=== PATIENT | male | born 1955 | race Caucasian/White ===

== ENCOUNTER → 2018-01-07 | Outpatient (CLI) | payer OTHER ==
[~2018-01-07] MED LIST: ACE325 PO; ALP25 PO; ASP325 PO; DILT120C18 PO; ESCI5TAB10 PO; HCTZ25 PO; LISI2.5T60 PO; REGADENOSON 0.4 MG/5 ML SYR ONE; RIVA20TA PO; SIMV-42 PO
--- NOTE | 2018-01-07 23:23 | RT STRESS TEST REPORT ---
FACILITY: [facility] PATIENT NAME: LIZ STEVENS : [id number] MR: [id number] V: [id number] EXAM DATE: ORDERING PHYSICIAN: MARCUS CARRIZALES TECHNOLOGIST: Juanjo Acquisition Time: 2018-01-07 14:07:28 Total Exercise Time: 00:01:00 Test Indications: A Flutter Medications: See NM lIst Protocol: LEXISCAN Max HR: 082 BPM 51% of Pred: 160 BPM Max BP: 201/089 mmHG Max Work Load: 1.0 METS Confirmed by TORREY ARREDONDO ([id number]) on 01/07/2018 11:23:17 PM Referred By: Overread By: TORREY ARREDONDO
--- NOTE | 2018-01-08 10:46 | RADIOLOGY IMAGING REPORT ---
FACILITY: [facility] [place] PATIENT NAME: Sanjay Salmon : 1955 MR: [id number] V: [id number] EXAM DATE: ORDERING PHYSICIAN: MARCUS CARRIZALES TECHNOLOGIST: Location: [facility] [place] Patient: Sanjay Salmon : 1955 Visit/Account:[id number] Date of Sevice: 01/07/2018 EXAMINATION: Single isotope SPECT imaging with regadenoson infusion and gated SPECT imaging. DATE OF EXAMINATION: January 07, 2018. DATE OF INTERPRETATION: January 08, 2018. REQUESTING PHYSICIAN: MARCUS CARRIZALES. INDICATION: The patient is a 62-year-old male evaluated for ventricular tachycardia. PROCEDURE: After informed consent the patient received an intravenous injection of 12.2 mCi of Tc-99 m sestamibi followed at an appropriate time interval by rest imaging. The patient then subsequently received an intravenous infusion of 0.4 mg of regadenoson per protocol without complication. Resting heart rate was 51 bpm with a peak heart rate of 82 bpm. Blood pressure at rest was 153 / 91 and fol lowing infusion was 172 / 93. Baseline EKG demonstrates normal sinus rhythm with frequent PVCs. The re were no EKG changes of ischemia following infusion. Symptoms were nonspecific. The patient then received an intravenous injection of 30.0 mCi of Tc-99m sestamibi followed by stress imaging. RAW DATA: Examination of the summed raw data revealed a good quality study. MYOCARDIAL PERFUSION: The tomographic images demonstrate a mild decrease in myocardial perfusion tra cer uptake in the basal inferior wall seen on rest images with a mild decrease in tracer uptake in th e basal to mid inferior wall seen on stress imaging. In addition there is a subtle decrease in tracer uptake in the mid anterior wall on stress images not appreciated on rest imaging.. GATED IMAGES: The gated images demonstrate an ejection fraction 45% with global hypokinesis, visuall y appears normal. IMPRESSION: 1. Abnormal myocardial perfusion scan. There is a mild partially reversible defect in the basal to m id inferior wall as well as a subtle reversible defect in the mid anterior wall both of which could b e consistent with ischemia. However neither these defects are noted on prone imaging. The 3 times a d ay measurement is 1.5 for which can be consistent with multivessel disease. 2. Abnormal myocardial perfusion scan. 3. Abnormal LV systolic function; LVEF 45%. Visually ejection fraction appears normal, consider echo cardiogram 4. Based on the results of this exam, the patient appears to be at high risk for future cardiovascula r events. Report Dictated By: María Elena Villavicencio at 01/08/2018 10:38 AM Report E-Signed By: María Elena Villavicencio at 01/08/2018 10:42 AM WSN:[id number]
== END ==
LOC: RESP 04:40
PROVIDERS: ATTEND Internal Medicine
DX: I47.2 Ventricular tachycardia (principal)
CPT/HCPCS: 78452; 93017; A9500; J2785

== ENCOUNTER 2018-02-01 18:38 | Emergency (ER) | payer OTHER ==
[~2018-02-01 18:38] MED LIST changes: -REGADENOSON 0.4 MG/5 ML SYR ONE
--- NOTE | 2018-02-01 18:46 | ER Report ---
History and Physical Time Seen By MD: 18:46 Hx. of Stated Complaint: pt reports feeling heart move abnormally, fluttering, pt also reports dizziness , slight sob HPI/ROS CHIEF COMPLAINT: Palpitations HISTORY OF PRESENT ILLNESS: This is a 62-year-old male who presents to the emergency department for palpitations and shortness of breath. Patient states that he is status post a kayak ablation 2 weeks ago for atrial flutter. Patient states that the procedure went well was cleared to work out and started working out here recently. Patient states that yesterday he felt like his heart was fluttering lasted for maybe a couple of hours and resolved didn't think anything of it and woke up today states not feeling well. Throughout the day he has had some increased shortness of breath he also states that he has had some fluttering feelings in his heart all day, he states he went for a walk and his heart rate was up around 120 sustained for a period of time and his heart rate came down and he felt less short of breath. Patient also states he did feel lightheaded, especially when moving from sitting to standing. Patient denies chest pain, nausea, vomiting, diarrhea, aches, chills. REVIEW OF SYSTEMS: Constitutional: No fever, no chills. Eyes: No discharge. ENT: No sore throat. Cardiovascular: As above. Respiratory: As above. Gastrointestinal: No abdominal pain, no vomiting. Genitourinary: No hematuria. Musculoskeletal: No back pain. Skin: No rashes. Neurological: No headache. Allergies: Coded Allergies: No Known Drug Allergies (Verified , 08/04/12) Home Meds Active Scripts Rivaroxaban 20 Mg (XARELTO 20 MG) 20 Mg Tablet, 20 MG PO DAILY for stroke prevention with atrial , #30 TAB Prov:ROXY MONTALVO DO 10/27/17 Diltiazem Hcl (DILTIAZEM 24HR CD) 120 Mg Cap.er.24h, 120 MG PO DAILY for heart rate control, #30 Prov:ROXY MONTALVO DO 10/27/17 Reported Medications Ubidecarenone (COQ10) 50 Mg Tab.chew, 50 MG PO, TAB.CHEW 02/01/18 Atorvastatin Calcium (LIPITOR) 20 Mg Tablet, 1 TAB PO QDAY, TAB 02/01/18 Losartan Potassium (LOSARTAN POTASSIUM) 50 Mg Tablet, 75 MG PO QDAY 02/01/18 Acetaminophen (Tylenol) 325 Mg Tab, 650 MG PO Q4H Y, 0 Refills MAY HAVE 650 MG BY MOUTH EVERY 4 HOURS NEEDED. 05/31/10 Discontinued Reported Medications Simvastatin (Zocor) 20 Mg Tablet, 20 MG PO QHS, 0 Refills 05/31/10 Lisinopril (Lisinopril) 2.5 Mg Tablet, 2.5 MG PO DAILY, 0 Refills 05/31/10 Escitalopram Oxalate (Lexapro) 5 Mg Tablet, 5 MG PO QDAY, 0 Refills 05/31/10 Alprazolam (Xanax) 0.25 Mg Tab, 0.25 MG PO Q8H Y, 0 Refills 05/31/10 Aspirin (Aspirin) 325 Mg Tab, 81 MG PO DAILY, 0 Refills 05/31/10 Hydrochlorothiazide (Hydrochlorothiazide) 25 Mg Tab, 25 MG PO QDAY, 0 Refills 05/31/10 Past Medical/Surgical History Patient has a past medical and surgical history of hypertension, sleep apnea, cardiac ablation, atrial flutter, wears glasses, anxiety, left shoulder surgery. Reviewed Nurses Notes: Yes Hx Smoking: Yes (PAST) Hx Substance Use Disorder: Yes (JAZMIN) Hx Alcohol Use: Yes (MODERATE TO HIGH) Constitutional Vital Sign - Last 24 Hours 02/01/18 02/01/18 02/01/18 02/01/18 18:41 18:41 18:53 19:00 Temp 97.0 Pulse 74 74 Resp 18 11 B/P (MAP) 152/94 (113) 152/94 ???/??? (6790) Pulse Ox 94 93 O2 Delivery Room Air 02/01/18 02/01/18 02/01/18 02/01/18 19:08 19:13 19:28 19:30 Pulse 51 ??? 50 Resp 13 10 B/P (MAP) ???/??? (2698) Pulse Ox 94 92 02/01/18 02/01/18 02/01/18 02/01/18 19:43 19:46 19:58 20:00 Pulse 48 48 Resp 10 16 B/P (MAP) 126/88 (101) 117/88 (98) Pulse Ox 94 95 Physical Exam General Appearance: The patient is alert, has no immediate need for airway protection and no signs of toxicity. Eyes: Pupils equal and round no pallor or injection. ENT, Mouth: Mucous membranes are moist. Respiratory: There are no retractions, lungs are clear to auscultation. Cardiovascular: Regular rate and rhythm, no murmurs, clicks or rubs. Gastrointestinal: Abdomen is soft and non tender, no masses, bowel sounds normal. Neurological: Alert and oriented 4. Moving all tremor ease. No focal neural deficits. Following all commands. Skin: Warm and dry, no rashes. Musculoskeletal: Neck is supple non tender. Extremities are nontender, nonswollen and have full range of motion. [ ] DIFFERENTIAL DIAGNOSIS: After history and physical exam differential diagnosis was considered for chest pain including but not limited to myocardial ischemia, pericarditis pulmonary embolus, chest wall pain, pleural inflammation, status post ablation arrhythmias and pulmonary infectious causes. Medical Decision Making Data Points Result Diagram: 02/01/18 19002/01/18 190 Laboratory Hematology Test 02/01/18 19:00 Red Blood Count 5.85 M/uL (4.00-5.60) Mean Corpuscular Volume 82.1 fL (80.0-96.0) Mean Corpuscular Hemoglobin 28.6 pg (26.0-33.0) Mean Corpuscular Hemoglobin Concent 34.8 g/dL (32.0-36.0) Red Cell Distribution Width 13.5 % (11.5-14.5) Mean Platelet Volume 8.1 fL (7.2-11.1) Neutrophils (%) (Auto) 70.2 % (39.4-72.5) Lymphocytes (%) (Auto) 21.1 % (17.6-49.6) Monocytes (%) (Auto) 6.9 % (4.1-12.4) Eosinophils (%) (Auto) 1.2 % (0.4-6.7) Basophils (%) (Auto) 0.6 % (0.3-1.4) Nucleated RBC Relative Count (auto) 0.1 /100WBC Neutrophils # (Auto) 5.2 K/uL (2.0-7.4) Lymphocytes # (Auto) 1.6 K/uL (1.3-3.6) Monocytes # (Auto) 0.5 K/uL (0.3-1.0) Eosinophils # (Auto) 0.1 K/uL (0.0-0.5) Basophils # (Auto) 0.0 K/uL (0.0-0.1) Nucleated RBC Absolute Count (auto) 0.01 K/uL Sodium Level 136 mmol/L (137-145) Potassium Level 4.2 mmol/L (3.5-5.0) Chloride Level 104 mmol/L (98-107) Carbon Dioxide Level 20 mmol/L (22-30) Blood Urea Nitrogen 14 mg/dl (9-21) Creatinine 0.80 mg/dl (0.66-1.25) Glomerular Filtration Rate Calc > 60.0 Random Glucose 101 mg/dl (75-110) Calcium Level 9.0 mg/dl (8.4-10.2) Total Bilirubin 0.5 mg/dl (0.2-1.3) Aspartate Amino Transf (AST/SGOT) 22 U/L (0-35) Alanine Aminotransferase (ALT/SGPT) 38 U/L (0-56) Alkaline Phosphatase 97 U/L (0-126) Troponin I 0.019 ng/ml B-Type Natriuretic Peptide 46 pg/ml (0-100) Total Protein 7.3 gm/dl (6.3-8.2) Albumin 4.0 g/dl (3.5-5.0) Chemistry Test 02/01/18 19:00 White Blood Count 7.4 k/uL (4.5-11.0) Red Blood Count 5.85 M/uL (4.00-5.60) Hemoglobin 16.7 g/dL (14.0-18.0) Hematocrit 48.1 % (42.0-52.0) Mean Corpuscular Volume 82.1 fL (80.0-96.0) Mean Corpuscular Hemoglobin 28.6 pg (26.0-33.0) Mean Corpuscular Hemoglobin Concent 34.8 g/dL (32.0-36.0) Red Cell Distribution Width 13.5 % (11.5-14.5) Platelet Count 237 K/uL (150-450) Mean Platelet Volume 8.1 fL (7.2-11.1) Neutrophils (%) (Auto) 70.2 % (39.4-72.5) Lymphocytes (%) (Auto) 21.1 % (17.6-49.6) Monocytes (%) (Auto) 6.9 % (4.1-12.4) Eosinophils (%) (Auto) 1.2 % (0.4-6.7) Basophils (%) (Auto) 0.6 % (0.3-1.4) Nucleated RBC Relative Count (auto) 0.1 /100WBC Neutrophils # (Auto) 5.2 K/uL (2.0-7.4) Lymphocytes # (Auto) 1.6 K/uL (1.3-3.6) Monocytes # (Auto) 0.5 K/uL (0.3-1.0) Eosinophils # (Auto) 0.1 K/uL (0.0-0.5) Basophils # (Auto) 0.0 K/uL (0.0-0.1) Nucleated RBC Absolute Count (auto) 0.01 K/uL Glomerular Filtration Rate Calc > 60.0 Calcium Level 9.0 mg/dl (8.4-10.2) Total Bilirubin 0.5 mg/dl (0.2-1.3) Aspartate Amino Transf (AST/SGOT) 22 U/L (0-35) Alanine Aminotransferase (ALT/SGPT) 38 U/L (0-56) Alkaline Phosphatase 97 U/L (0-126) Troponin I 0.019 ng/ml B-Type Natriuretic Peptide 46 pg/ml (0-100) Total Protein 7.3 gm/dl (6.3-8.2) Albumin 4.0 g/dl (3.5-5.0) EKG/Imaging EKG Interpretation 12 lead EKG: Time of EKG 1839. Rhythm: Sinus rhythm, and regular rate 85 bpm. Flushing: normal QRS: normal ST segments: No ST depression or elevation identified. Multifocal PVCs, no couplets or runs. Previous EKGs showing SVT, atrial flutter with PVCs. Imaging Location: [facility] Patient: Sanjay Salmon : 1955 Visit/Account:[id number] Date of Sevice: 02/01/2018 2 VIEWS CHEST INDICATION: Dizziness. COMPARISON: 10/27/2017. FINDINGS: Cardiomediastinal silhouette and pulmonary vessels within normal limits. There is no focal infiltrate or lobar consolidation. There is no pneumothorax or pleural effusion. Stable granuloma in the right upper lobe. No new nodule. Upper abdomen is unremarkable. No acute bony abnormality. IMPRESSION: 1. No acute cardiopulmonary process. Report Dictated By: Gurmeet Graves at 02/01/2018 7:29 PM Report E-Signed By: Gurmeet Graves at 02/01/2018 7:30 PM WSN:[id number] ED Course/Re-evaluation Clinical Indication for ER IV: IV Access ED Course The patient was admitted to room. A history physical were obtained. Differential diagnoses were considered. An IV was started. A CBC, CMP, troponin and BNP were obtained. Lab studies unremarkable. Negative troponin, negative BNP. Two-view chest x-ray was negative for any cardiopulmonary process. I did review these results with the patient and his . I also consulted with Dr. Gibbs as noted below he felt we can go ahead and send the patient home since he has a follow-up appointment this coming Wednesday with his stockfeed miller, start him back on his Cardizem at 120 mg daily with the understanding that he can return at any time for worsening symptoms or shortness of breath or chest pain. Patient expressed understanding and was agreeable with this plan of care. 02/01/2018 8:00:09 pm I did speak with Dr. Gibbs of [facility] , one of the partners of Dr. Harp, who actually performed the ablation. He said send the patient home he can follow up as scheduled this coming Wednesday with his stockfeed miller go ahead and restart the Cardizem 120 mg daily. Decision to Disposition Date: Feb 01, 2018 Decision to Disposition Time: 20:01 Depart Departure Latest Vital Signs Vital Signs Date Time Temp Pulse Resp B/P (MAP) Pulse Ox O2 Delivery O2 Flow Rate FiO2 02/01/18 20:00 117/88 (98) 02/01/18 19:58 48 16 95 02/01/18 18:41 97.0 Room Air Impression: Primary Impression: Palpitations Condition: Improved Disposition: HOME OR SELF-CARE Referrals: SURENDRA HERNANDEZ DO (PCP) Patient Instructions: Palpitations (ED) Additional Instructions: Drink plenty of fluids. Get plenty of rest. Start the Cardizem 120 mg once a day until you have your follow-up appointment with cardiology this Wednesday. Continue with your regular medications as prescribed. Continue to monitor your pulse. Follow-up with your primary care provider as scheduled. May return to the ED for any other concerns or worsening symptoms. GUDELIA MENDEZ PHOTOGRAPHIC LABORATORY SUPERVISOR-BC Feb 01, 2018 18:46
[2018-02-01] MEDS ORDERED: LOSA50TA72 PO (18:48)
[2018-02-01] MEDS ORDERED: ATOR20TA22 PO (18:49)
[2018-02-01] MEDS ORDERED: UBID50TA3 PO (19:00)
[2018-02-01 19:13] LABS: PLATELET COUNT, AUTOMATED 237 K/uL (150-450)
--- NOTE | 2018-02-01 19:34 | EKG ---
FACILITY: [facility] - [place] PATIENT NAME: LIZ STEVENS : [id number] MR: [id number] V: [id number] EXAM DATE: ORDERING PHYSICIAN: GUDELIA MENDEZ TECHNOLOGIST: YOU Test Reason : IRREG HR Blood Pressure : / mmHG Vent. Rate : 085 BPM Atrial Rate : 049 BPM P-R Int : 162 ms QRS Dur : 088 ms QT Int : 384 ms P-R-T Axes : 049 -07 030 degrees QTc Int : 456 ms Marked sinus bradycardia with frequent premature ventricular complexes Abnormal ECG When compared with ECG of 27-OCT-2017 18:51, Sinus rhythm has replaced Atrial flutter Questionable change in QRS axis Confirmed by CHAY MOREL ([id number]) on 02/01/2018 10:18:24 PM Referred By: KATIA Confirmed By:CHAY MOREL
--- NOTE | 2018-02-01 19:34 | RADIOLOGY IMAGING REPORT ---
FACILITY: [facility] [place] PATIENT NAME: Sanjay Salmon : 1955 MR: [id number] V: [id number] EXAM DATE: ORDERING PHYSICIAN: GUDELIA MENDEZ TECHNOLOGIST: Location: [facility] Patient: Sanjay Salmon : 1955 Visit/Account:[id number] Date of Sevice: 02/01/2018 2 VIEWS CHEST INDICATION: Dizziness. COMPARISON: 10/27/2017. FINDINGS: Cardiomediastinal silhouette and pulmonary vessels within normal limits. There is no focal infiltrate or lobar consolidation. There is no pneumothorax or pleural effusion. Stable granuloma in the right upper lobe. No new nodule. Upper abdomen is unremarkable. No acute bony abnormality. IMPRESSION: 1. No acute cardiopulmonary process. Report Dictated By: Gurmeet Graves at 02/01/2018 7:29 PM Report E-Signed By: Gurmeet Graves at 02/01/2018 7:30 PM WSN:[id number]
[2018-02-01 20:00] VITALS: BP 117/88
== END 2018-02-01 20:20 | disposition home or self-care (01) ==
LOC: ER 18:48
DX: R00.2 Palpitations (principal); R94.31 Abnormal electrocardiogram [ECG] [EKG]; R00.1 Bradycardia, unspecified; I49.3 Ventricular premature depolarization
CPT/HCPCS: 71046; 82040; 82247; 82310; 82374; 82435; 82565; 82947; 83880; 84075; 84132; 84155; 84295; 84450; 84460; 84484; 84520; 85025; 93005; 99284

== ENCOUNTER → 2018-03-04 | Outpatient (CLI) | payer OTHER ==
[~2018-03-04] MED LIST changes: +ATOR20TA22 PO; +LOSA50TA72 PO; +UBID50TA3 PO
== END ==
LOC: LAB 07:42
PROVIDERS: ATTEND Physician Assistant Medical
DX: R19.7 Diarrhea, unspecified (principal)
CPT/HCPCS: 87045

== ENCOUNTER → 2018-04-14 | Day surgery (SDC) | payer OTHER ==
[~2018-04-14] VITALS: Ht 193 cm; Wt 112.0 kg
[~2018-04-14] MED LIST changes: +LIDOCAINE MPF 1% 5 ML VIAL ONE; +LIDOCAINE/SOD BICARB 8.4% SYR ID ONE; +NORMOSOL R SOLN(*) 1000 ML BAG 1,000 ML IV PRN; +PROPOFOL EMUL(*) 10MG/ML 20 ML 60 ML ONE
--- NOTE | 2018-04-14 07:28 | Post Operative Progress Note ---
Post Operative Progress Note Date: April 14, 2018 Time: 10:31 Surgeon: enzo Anesthesia: dr rodríguez Pre-Op Diagnosis: screening colonoscopy Post-Op Diagnosis: 2 mm polyp at 10 and 15 cm Procedure(s): colonoscopy and polypectomy CAROL TAFOYA MD April 14, 2018 07:28
--- NOTE | 2018-04-14 07:29 | Short(Outpt) Discharge Summary ---
Discharge Summary Reason for Hosp/Final Diag: (1) Encounter for screening colonoscopy Hospital Course & Plan: 2 mm polyp at 10 and 15 cm Departure Discharge to: Home Discharge Instructions Home Meds Active Scripts Rivaroxaban 20 Mg (XARELTO 20 MG) 20 Mg Tablet, 20 MG PO DAILY for stroke prevention with atrial , #30 TAB Prov:ROXY MONTALVO DO 10/27/17 Diltiazem Hcl (DILTIAZEM 24HR CD) 120 Mg Cap.er.24h, 120 MG PO DAILY for heart rate control, #30 Prov:ROXY MONTALVO DO 10/27/17 Reported Medications Ubidecarenone (COQ10) 50 Mg Tab.chew, 50 MG PO, TAB.CHEW 02/01/18 Atorvastatin Calcium (LIPITOR) 20 Mg Tablet, 1 TAB PO QDAY, TAB 02/01/18 Losartan Potassium (LOSARTAN POTASSIUM) 50 Mg Tablet, 75 MG PO QDAY 02/01/18 Acetaminophen (Tylenol) 325 Mg Tab, 650 MG PO Q4H Y, 0 Refills MAY HAVE 650 MG BY MOUTH EVERY 4 HOURS NEEDED. 05/31/10 Diet: Regular Activity: As Tolerated Special Instructions: resume xarelto tomorrow CAROL TAFOYA MD April 14, 2018 07:29
[2018-04-14 09:22] VITALS: BP 148/85
[2018-04-14 10:32] VITALS: BP 113/73
[2018-04-14 10:50] VITALS: BP 117/68
[2018-04-14 11:15] VITALS: BP_SYST 134; BP_DIAS 84; BP_DIAS 99
--- NOTE | 2018-04-14 15:57 | OPERATIVE REPORT 1 ---
EVENT DATE: April 14, 2018 SURGEON: Raciel Belle MD ANESTHESIOLOGIST: Efrain Napoles MD ANESTHESIA: Sedation. PREOPERATIVE DIAGNOSIS Screening colonoscopy. POSTOPERATIVE DIAGNOSIS A 2 mm polyp at 15 cm and at 10 cm. PROCEDURE PERFORMED Colonoscopy with polypectomy. DESCRIPTION OF PROCEDURE Patient was placed in the left lateral decubitus position and given intravenous sedation. Flexible colonoscope was inserted and advanced to the cecum. He had a good bowel prep. He had a little bit of solid stool that gave us some difficulty, but we got quite good visualization with some effort. The ileocecal valve and base of the cecum were identified. Scope was slowly withdrawn. Care was taken to look behind the haustral folds. No abnormalities were noted in the cecum, right colon, transverse, or descending colon. Sigmoid colon was normal. At 15 cm, he had a small, 2 mm mucosal polyp, and this was removed with the cold cup. At 10 cm, he had another that was removed with the cold cup. The scope was retroflexed. That appeared to be normal. Patient tolerated the procedure well. No apparent complication. AL[facility] HYDE MEDICAL CENTERJuan Miguel
== END ==
LOC: OR 00:54
PROVIDERS: ATTEND Surgery
DX: Z12.11 Encounter for screening for malignant neoplasm of colon (principal); K63.5 Polyp of colon
CPT/HCPCS: 00811; 45380; 88305; J2001; J2704

== ENCOUNTER → 2018-05-02 | Outpatient (CLI) | payer OTHER ==
[~2018-05-02] MED LIST changes: -LIDOCAINE MPF 1% 5 ML VIAL ONE; -LIDOCAINE/SOD BICARB 8.4% SYR ID ONE; -NORMOSOL R SOLN(*) 1000 ML BAG 1,000 ML IV PRN; -PROPOFOL EMUL(*) 10MG/ML 20 ML 60 ML ONE
== END ==
LOC: LAB 07:46
PROVIDERS: ATTEND Family Medicine
DX: R19.7 Diarrhea, unspecified (principal)
CPT/HCPCS: 83630; 87324; 87449

== ENCOUNTER 2018-07-27 00:55 | Day surgery (SDC) | payer OTHER ==
[~2018-07-27] VITALS: Ht 188 cm; Wt 112.0 kg
[~2018-07-27 00:55] MED LIST changes: -LOSA50TA72 PO; +LOSA50TA74 PO; +RIVA10TA PO
[2018-07-27] MEDS ORDERED: LIDOCAINE/SOD BICARB 8.4% SYR ID ONE (10:10)
[2018-07-27] MEDS ORDERED: NORMOSOL R SOLN(*) 1000 ML BAG 1,000 ML IV PRN (10:10)
[2018-07-27 10:22] VITALS: BP 147/85
[2018-07-27] MEDS ORDERED: PROPOFOL EMUL(*) 10MG/ML 20 ML 40 ML ONE (12:08)
[2018-07-27 12:10] VITALS: BP 120/74
--- NOTE | 2018-07-27 12:18 | Short(Outpt) Discharge Summary ---
Discharge Summary Reason for Hosp/Final Diag: (1) Diarrhea Status: Chronic Hospital Course & Plan: Flexible sigmoidoscopy with biopsies and rectal polyp removal completed without problems. Departure Discharge to: Home, Self Care Discharge Instructions Home Meds Reported Medications Rivaroxaban 10 MG (Xarelto 10 MG) 10 Mg Tablet, 10 MG PO DAILY 07/21/18 Ubidecarenone (COQ10) 50 Mg Tab.chew, 50 MG PO, TAB.CHEW 02/01/18 Atorvastatin Calcium (LIPITOR) 20 Mg Tablet, 1 TAB PO QDAY, TAB 02/01/18 Losartan Potassium (LOSARTAN POTASSIUM) 50 Mg Tablet, 75 MG PO QDAY 02/01/18 Acetaminophen (Tylenol) 325 Mg Tab, 650 MG PO Q4H PRN, 0 Refills MAY HAVE 650 MG BY MOUTH EVERY 4 HOURS NEEDED. 05/31/10 Discontinued Scripts Diltiazem Hcl (DILTIAZEM 24HR CD) 120 Mg Cap.er.24h, 120 MG PO DAILY for heart rate control, #30 Prov:ROXY MONTALVO DO 10/27/17 Diet: Regular Activity: As Tolerated Special Instructions: Your flexible sigmoidoscopy was completed without any problems and your prep was excellent. I didn't find any active inflammation but I biopsied your descending and sigmoid colon and your rectum. I did find a small polyp in your rectum that I removed and sent it to pathology. My office will call you in the next week or so and let you know the biopsy results and when your next screening colonoscopy should be (either 5 or 10 years) depending on what the polyp is. We will also fax these results to your GI specialist. You can schedule a follow up appointment to see your GI specialist to discuss these results and determine further work up and/or treatment with them. Problem Qualifiers (1) Diarrhea: Diarrhea type: unspecified type Qualified Codes: R19.7 - Diarrhea, unspecified TORREY IRWIN MD Jul 27, 2018 12:18
[2018-07-27 12:30] VITALS: BP 125/79
== END 2018-07-27 13:12 | disposition home or self-care (01) ==
LOC: OR 00:55
PROVIDERS: ATTEND Surgery
DX: D12.8 Benign neoplasm of rectum (principal)
CPT/HCPCS: 00811; 45380; 88305; J2704